=== PATIENT | female | born 1930 | race Hispanic/Latino ===

== ENCOUNTER 2016-09-22 16:58 | Inpatient (IN) | payer MEDICARE, OTHER ==
[2016-09-22 16:59] VITALS: BMI 27.8
--- NOTE | 2016-09-22 17:27 | ED PDOC ---
Arrival/HPI - General Historian: Patient, Family - History of Present Illness Time/Duration: 4-6 hours Symptom Onset: Gradual Symptom Course: Unchanged Quality: Throbbing Severity Level: 5 Activities at Onset: Rest Context: Sitting <Eliel Casiano - Last Filed: 09/22/16 23:25> <Miranda Sanford - Last Filed: 09/22/16 23:38> - General Chief Complaint: Back Pain Time Seen by Provider: 09/22/16 17:00 - History of Present Illness Narrative History of Present Illness (Text): 09/22/16 17:39 This is a 85 yr old female with a past medical history of hypertension and CKD who presents to [facility] complaining of back pain for approximately 8 hours. The pain is located between the the scapula's and the patient denies of any radiation of the pain. The patient was in bed this morning watching T.V. when she began to have back pain. Per the patient, she took two Tylenol with some improvement of symptoms but the pain began to return to the same intensity. The patient denies any fever, chills, chest pain , shortness of breath, nausea, vomiting, lightheadedness, dizziness, or any other complaints. (Eliel Casiano) Past Medical History - Provider Review Nursing Documentation Reviewed: Yes - Travel History Have you recently traveled outside [place] w/in the past 3 mons?: No - Infectious Disease Hx of Infectious Diseases: None - Tetanus Immunization Tetanus Immunization: Unknown - Reproductive Menopause: Yes - Cardiac Hx Cardiac Disorders: Yes Hx Hypertension: Yes - Pulmonary Hx Asthma: Yes Hx Chronic Obstructive Pulmonary Disease (COPD): Yes Hx Pneumonia: Yes - Neurological Hx Neurological Disorder: No - HEENT Hx HEENT Disorder: Yes Hx Cataracts: Yes (sx) - Renal Hx Renal Disorder: Yes - Endocrine/Metabolic Hx Endocrine Disorders: Yes Hx Hypothyroidism: Yes - Hematological/Oncological Hx Blood Disorders: No - Integumentary Hx Dermatological Disorder: No - Musculoskeletal/Rheumatological Hx Arthritis: Yes Hx Falls: No - Gastrointestinal Hx Gastrointestinal Disorders: No - Genitourinary/Gynecological Hx Incontinence: Yes - Psychiatric Hx Psychophysiologic Disorder: No Hx Substance Use: No - Surgical History Hx Mastectomy: Yes (bilateral) Other/Comment: c sections x2 - Suicidal Assessment Feels Threatened In Home Enviroment: No <Eliel Casiano - Last Filed: 09/22/16 23:25> Family/Social History Family/Social History: No Known Family HX Smoking Status: Never Smoked Hx Alcohol Use: No Hx Substance Use: No <Johanne Casianon - Last Filed: 09/22/16 23:25> Allergies/Home Meds <Johanne Casianon - Last Filed: 09/22/16 23:25> <Miranda Sanford - Last Filed: 09/22/16 23:38> Allergies/Adverse Reactions: Allergies No Known Allergies Allergy (Verified 05/03/13 16:21) Home Medications: Home Meds Medication Instructions Recorded Confirmed Levothyroxine Sodium [Levoxyl] 50 mcg PO DAILY 09/22/16 09/22/16 Nebivolol [Bystolic] 5 mg PO DAILY 09/22/16 09/22/16 Sodium Bicarbonate Tab 650 mg PO TID 09/22/16 09/22/16 amLODIPine [Norvasc] 10 mg PO DAILY 09/22/16 09/22/16 Review of Systems - Patients Enrolled in [employer] [X]: A conversation was conducted with the primary medical doctor. - Physician Review All systems were reviewed & negative as marked: Yes - Review of Systems Constitutional: Normal. absent: Weight Change, Fevers, Night Sweats Eyes: Normal. absent: Vision Changes, Eye Pain ENT: Normal. absent: Sore Throat, Rhinorrhea, Sinus Congestion Respiratory: Normal. absent: SOB, Sputum Cardiovascular: Normal. absent: Chest Pain, Palpitations Gastrointestinal: Normal. absent: Constipation, Diarrhea, Nausea, Vomiting Genitourinary Female: Normal. absent: Frequency, Hematuria Musculoskeletal: Back Pain (located between both scapula) Skin: absent: Skin Lesions, Laceration, Abscess Neurological: Normal. absent: Headache, Dizziness Endocrine: Normal. absent: Polyuria, Polydipsia Hemo/Lymphatic: Normal. absent: Easy Bleeding, Easy Bruising <Johanne Casianon - Last Filed: 09/22/16 23:25> Physical Exam Vital Signs Reviewed: Yes Temperature: Afebrile Blood Pressure: Hypertensive Pulse: Regular Respiratory Rate: Normal Appearance: Positive for: Well-Appearing, Non-Toxic, Comfortable Pain Distress: None Mental Status: Positive for: Alert and Oriented X 3 - Systems Exam Head: Present: Atraumatic, Normocephalic Pupils: Present: PERRL. No: Sluggish Extroacular Muscles: Present: EOMI. No: Gaze Palsy Conjunctiva: Present: Normal. No: Injected Mouth: Present: Moist Mucous Membranes. No: Drooling, Trismus Neck: Present: Normal Range of Motion. No: JVD, Lymphadenopathy Respiratory/Chest: Present: Good Air Exchange, Wheezes (slight expiratory wheeze noted but patient Sat's are well at 99% RA). No: Clear to Auscultation, Respiratory Distress, Accessory Muscle Use Cardiovascular: Present: Regular Rate and Rhythm, Normal S1, S2. No: Murmurs, Tachycardic, Bradycardic Abdomen: Present: Normal Bowel Sounds. No: Tenderness, Distention, Peritoneal Signs Back: Present: Normal Inspection, Midline Tenderness (located between both scapula midline). No: CVA Tenderness Upper Extremity: Present: Normal Inspection. No: Cyanosis, Edema, Tenderness Lower Extremity: Present: Normal Inspection. No: Edema, CALF TENDERNESS Neurological: Present: CN II-XII Intact, Speech Normal Skin: Present: Dry, Normal Color. No: Warm, Rashes, Cold Psychiatric: Present: Alert, Oriented x 3, Normal Insight, Normal Concentration <Eliel Casiano - Last Filed: 09/22/16 23:25> Medical Decision Making - RAD Interpretation Physician Interventional Cardiologist: Radiologist <Eliel Casiano - Last Filed: 09/22/16 23:25> <Miranda Sanford - Last Filed: 09/22/16 23:38> ED Course and Treatment: 09/22/16 17:51 Patient was brought into [facility] complaining of back pain located between the scapula. Labs were ordered including: ekg, cbc w/diff, cmp , mri/mra of chest and abdomen. Patient will be re-evaluated once lab work returns. Patient has a history of CKD so instead of a CT Angiogram we choose MRI/MRA to r /o aortic dissection. Spoke with Dr. Pride the Radiologist who recommended to do a f/u CT w/o contrast of the chest, abdomen and pelvis to r/o a possible stomach volvulus that was difficult to appreciate on MRI study. Patient will be admitted for further workup. (Eliel Casiano) EXAM: MRI Abdomen Without Intravenous Contrast 09/22/2016 11:07 PM Dictated and Authenticated by: Cyn Pride MD IMPRESSION: Limited evaluation of the abdomen and upper pelvis demonstrates findings worrisome for a paraesophageal hernia, with possible gastric volvulus, for which noncontrast head CT examination of this area suggested. No abnormal signal intensity along the course of the abdominal aorta to suggest dissection. THIS REPORT CONTAINS FINDINGS THAT MAY BE CRITICAL TO PATIENT CARE. The findings were verbally communicated via telephone conference with Miranda Sanford at 11:07 PM EDT on 09/22/2016. The findings were acknowledged and understood. 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 09/22/16 23:20 In agreement with resident note, which includes further HPI details. Patient was seen and evaluated with resident, came up with plan and treatment together. 85 year old female presents to the emergency department complaining of back pain for the past 8 hours. 09/22/16 23:33 Patient with the back pain - BP elevated and unexplained atraumatic back pain - concerning for possible aortic dissection. Given renal insufficiency, unable to obtain CTA; MRI ordered; results as noted. Large paraesophageal hernia may affect the back pain - additionally needs additional imaging by CT c/a/p to r/o stomach volvulus. Imaged were suboptimal to r/o dissection, however other than 2 images, the rest showed no suggestion of dissection. Urine shows UTI; given abx. Patient will need further observation for evaluation and treatment; CT results will be followed up by residents working under Dr. Monzon, with whom the case was discussed for placement on his service. (Miranda Sanford) - Lab Interpretations Lab Results: 09/22/16 18:04 09/22/16 18:04 Lab Results 09/22/16 18:04: D-Dimer, Quantitative 1.00 H 09/22/16 18:04: Urine Color Light yellow, Urine Appearance Sl cloudy, Urine pH 6.5, Ur Specific [place] 1.020, Urine Protein 100 H, Urine Glucose (UA) Negative , Urine Ketones Negative, Urine Blood Small H, Urine Nitrate Negative, Urine Bilirubin Negative, Urine Urobilinogen 0.2, Ur Leukocyte Esterase Moderate H, Urine RBC 2 - 5, Urine WBC 25 - 30, Ur Epithelial Cells 4 - 5, Urine Bacteria Rare 09/22/16 18:04: Sodium 139, Potassium 4.9, Chloride 108 H, Carbon Dioxide 22, Anion Gap 14, BUN 32 H, Creatinine 2.2 H, Est GFR ( Amer) 26, Est GFR ( Non-Af Amer) 21, Random Glucose 88, Calcium 9.2, Total Bilirubin 0.5, AST 25, ALT 18, Alkaline Phosphatase 76, Lactate Dehydrogenase 396, Total Creatine Kinase 62, Troponin I < 0.01 D, Total Protein 6.5, Albumin 3.7, Globulin 2.8, Albumin/Globulin Ratio 1.3, Lipase 157 09/22/16 18:04: WBC 8.8, RBC 3.75, Hgb 12.3, Hct 37.2, MCV 99.2, MCH 32.8, MCHC 33.1, RDW 12.9, Plt Count 175, MPV 11.5 H, Gran % 70.7 H, Lymph % (Auto) 18.3 L , Gregg % (Auto) 8.1 H, Eos % (Auto) 2.6, Baso % (Auto) 0.3, Gran # 6.21, Lymph # 1.6, Gregg # 0.7 H, Eos # 0.2, Baso # 0.03 - RAD Interpretation Radiology Orders: 09/22/16 17:36 CHEST TWO VIEWS (PA/LAT) [RAD] Stat 09/22/16 17:37 ABDOMEN W/O CONTRAST [MRI] Stat CHEST WITHOUT CONTRAST [MRI] Stat - Medication Orders Current Medication Orders: Discontinued Medications Diazepam (Valium) 5 mg PO ONCE ONE Stop: 09/22/16 17:36 Last Admin: 09/22/16 17:55 Dose: 5 mg Ceftriaxone Sodium (Rocephin 1 Gram Ivpb) 1 gm in 100 mls @ 200 mls/hr IV ONCE STA PRN Reason: Protocol Stop: 09/22/16 21:51 Last Admin: 09/22/16 22:06 Dose: 200 mls/hr Lorazepam (Ativan) 0.5 mg IVP ONCE STA PRN Reason: Protocol Stop: 09/22/16 19:31 Last Admin: 09/22/16 19:38 Dose: 0.5 mg Tramadol HCl (Ultram) 50 mg PO STAT STA Stop: 09/22/16 17:37 Last Admin: 09/22/16 17:55 Dose: 50 mg - PA / [employer]OL[employer] PROFESSIONAL / Resident Statement IFEANYI has reviewed & agrees with the documentation as recorded. / has examined the patient and agrees with the treatment plan. <Eliel Casiano - Last Filed: 09/22/16 23:25> - PA / [employer]OL[employer] PROFESSIONAL / Resident Statement IFEANYI has reviewed & agrees with the documentation as recorded. / has examined the patient and agrees with the treatment plan. - Scribe Statement The provider has reviewed the documentation as recorded by the Scribe <Miranda Sanford - Last Filed: 09/22/16 23:38> - Scribe Statement Ezio Oleary All medical record entries made by the Scribe were at my direction and personally dictated by me. I have reviewed the chart and agree that the record accurately reflects my personal performance of the history, physical exam, medical decision making, and the department course for this patient. I have also personally directed, reviewed, and agree with the discharge instructions and disposition. (Miranda Sanford) Disposition/Present on Arrival - Present on Arrival Any Indicators Present on Arrival: No History of DVT/PE: No History of Uncontrolled Diabetes: No Urinary Catheter: No History of Decub. Ulcer: No History Surgical Site Infection Following: None - Disposition Have Diagnosis and Disposition been Completed?: Yes Disposition Time: 23:00 Patient Plan: Observation <Eliel Casiano - Last Filed: 09/22/16 23:25> <Miranda Sanford - Last Filed: 09/22/16 23:38> - Disposition Diagnosis: UTI (urinary tract infection), Back pain Disposition: HOSPITALIZED Patient Problems: Current Active Problems Problem Status Onset Back pain Acute UTI (urinary tract infection) Acute Condition: FAIR
[2016-09-22 18:09] LABS: PH,URINE 6.5 (4.7-8.0); URINE BILIRUBIN NEGATIVE (NEGATIVE); URINE BLOOD SMALL (NEGATIVE); URINE GLUCOSE (UA) NEGATIVE (NEGATIVE); URINE LEUKOCYTE ESTERASE MODERATE Leu/uL (NEGATIVE); URINE NITRATE NEGATIVE (NEGATIVE); URINE PROTEIN 100 mg/dL (<30 mg/dL); URINE UROBILINOGEN 0.2 E.U./dL (<1 E.U./dL)
[2016-09-22 18:11] LABS: BASO # 0.03 K/mm3 (0.0-2.0); BASO % 0.3 % (0.0-3.0); EOS # 0.2 (0.0-0.7); EOS % 2.6 % (1.5-5.0); GRAN # 6.21 (1.4-6.5); GRAN % 70.7 % (50.0-68.0); HEMOGLOBIN 12.3 g/dL (12.0-16.0); LYMPH # 1.6 (1.2-3.4); LYMPH % 18.3 % (22.0-35.0); MEAN CELL VOLUME 99.2 fl (80.0-105.0); MEAN CORPUSCULAR HEMOGLOBIN 32.8 pg (25.0-35.0); MEAN CORPUSCULAR HGB CONC 33.1 g/dl (31.0-37.0); MEAN PLATELET VOLUME 11.5 fl (7.0-11.0); MONO # 0.7 (0.1-0.6); MONO % 8.1 % (1.0-6.0); PLATELET COUNT 175 10^3/uL (120.0-450.0); RBC 3.75 10^6/uL (3.5-6.1); RED CELL DISTRIBUTION WIDTH 12.9 % (11.5-14.5); WHITE BLOOD COUNT 8.8 10^3/ul (4.5-11.0)
[2016-09-22 18:16] LABS: URINE COLOR LIGHT YELLOW (YELLOW)
[2016-09-22 18:17] LABS: URINE APPEARANCE SL CLOUDY (CLEAR)
[2016-09-22 18:22] LABS: ALB/GLOB RATIO 1.3 (1.1-1.8); ALBUMIN 3.7 g/dL (3.0-4.8); ALT/SGPT 18 U/L (7-56); AST/SGOT 25 U/L (15-39); BLOOD UREA NITROGEN 32 mg/dL (7-21); CALCIUM 9.2 mg/dL (8.4-10.5); GFR AFRICAN-AMERICAN 26; GFR NON-AFRICAN AMERICAN 21; LIPASE 157 U/L (23-300); URINE WBC 25 - 30 /hpf (0-6)
[2016-09-22 18:23] LABS: URINE BACTERIA RARE (NEG)
[2016-09-22 18:34] LABS: TROPONIN I < 0.01 ng/mL
[2016-09-22] MEDS ORDERED: cefTRIAXone 1 gm 1 GM/100 ML BAG IV STA (21:22)
--- NOTE | 2016-09-22 21:32 | CARD ---
APPROVED REPORT EKG Measurement Heart [id number] <Conclusion> Normal sinus rhythm Left axis deviation Moderate voltage criteria for LVH, may be normal variant Cannot rule out Septal infarct, age undetermined T wave abnormality, consider lateral ischemia Abnormal ECG
--- NOTE | 2016-09-23 00:55 | CP.PCM.HP ---
History of Present Illness - History of Present Illness History of Present Illness: 85 yo female with a history of hypertension, asthma, hypothyroidism, and CKD who present with sudden onset, sharp, stabbing back pain of 2 hour duration, located centrally, that started at 7:30 pm when she was stretching her arms out above her head. She denies any recent trauma to the back, worsening of the pain with bending over, standing, sitting, eating, fasting. She states that taking 2 Tylenol's did help with the pain. She denies any sudden weakness, numbness, or loss of functionally, or similar symptoms in the past. PMHx: Hypertension, COPD, asthma, hypothyroidism, and CKD. PSH: Bilateral Mastectomy, 2- C sections Social: Denies smoking, denies alcohol, cannot provide more than that Present on Admission - Present on Admission Any Indicators Present on Admission: No Urinary Catheter: No Review of Systems - Constitutional Constitutional: As Per HPI - EENT Eyes: As Per HPI Nose/Mouth/Throat: As Per HPI - Cardiovascular Cardiovascular: As Per HPI. absent: Chest Pain, Chest Pain at Rest, Claudication - Respiratory Respiratory: As Per HPI. absent: Snoring, Stridor, Pain on Inspiration - Gastrointestinal Gastrointestinal: As Per HPI. absent: Fecal Incontinence, Hematochezia, Odynophagia - Genitourinary Genitourinary: absent: Pyuria, Nocturia, Voiding Freq/Small Amts - Reproductive: Female Reproductive:Female: absent: Heavy Menses, Light Menses, Spotting Between Cycles - Menstruation Menstruation: absent: Menses Variable, Cycle > 4 Weeks Between, Spotting Between Cycles - Musculoskeletal Musculoskeletal: absent: Atrophy, Muscle Cramps, Tingling - Integumentary Integumentary: absent: Photosensitivity, Pruritus - Neurological Neurological: absent: Burning Sensations, Focal Weakness, Syncope - Psychiatric Psychiatric: absent: Depression, Difficulty Concentrating, Mood Swings - Endocrine Endocrine: absent: Cold Intolorance, Excessive Sweating, Increase in Ring/Shoe/ Hat Size - Hematologic/Lymphatic Hematologic: absent: Easy Bleeding, Easy Bruising Past Patient History - Infectious Disease Hx of Infectious Diseases: None - Tetanus Immunizations Tetanus Immunization: Unknown - Past Social History Smoking Status: Never Smoked - CARDIAC Hx Cardiac Disorders: Yes Hx Hypertension: Yes - PULMONARY Hx Asthma: Yes Hx Chronic Obstructive Pulmonary Disease (COPD): Yes Hx Pneumonia: Yes - NEUROLOGICAL Hx Neurological Disorder: No - HEENT Hx HEENT Problems: Yes Hx Cataracts: Yes (sx) - RENAL Hx Chronic Kidney Disease: Yes - ENDOCRINE/METABOLIC Hx Endocrine Disorders: Yes Hx Hypothyroidism: Yes - HEMATOLOGICAL/ONCOLOGICAL Hx Blood Disorders: No - INTEGUMENTARY Hx Dermatological Problems: No - MUSCULOSKELETAL/RHEUMATOLOGICAL Hx Arthritis: Yes Hx Falls: No - GASTROINTESTINAL Hx Gastrointestinal Disorders: No - GENITOURINARY/GYNECOLOGICAL Hx Incontinence: Yes - PSYCHIATRIC Hx Psychophysiologic Disorder: No Hx Substance Use: No - SURGICAL HISTORY Hx Mastectomy: Yes (bilateral) Other/Comment: c sections x2 Meds Allergies/Adverse Reactions: Allergies Allergy/AdvReac Type Severity Reaction Status Date / Time No Known Allergies Allergy Verified 05/03/13 16:21 Physical Exam - Constitutional Appears: Non-toxic, No Acute Distress - Head Exam Head Exam: ATRAUMATIC, NORMOCEPHALIC - Eye Exam Eye Exam: EOMI, Normal appearance, PERRL - ENT Exam ENT Exam: Mucous Membranes Moist, Normal Oropharynx - Neck Exam Neck exam: Positive for: Normal Inspection. Negative for: Lymphadenopathy, Thyromegaly - Respiratory Exam Respiratory Exam: Clear to Auscultation Bilateral, NORMAL BREATHING PATTERN - Cardiovascular Exam Cardiovascular Exam: RRR, +S1, +S2 - GI/Abdominal Exam GI & Abdominal Exam: Normal Bowel Sounds. absent: Rebound Additional comments: protuberant, no HSM, no rebound or tenderness, no aortic, renal, or illiac bruits auscultated - Rectal Exam Rectal Exam: Deferred - Extremities Exam Extremities exam: Positive for: normal inspection, pedal pulses present - Back Exam Additional comments: no tenderness to vertebral body palpation in thoracic and lumbar region. No CVA tenderness, no paraspinal tenderness - Neurological Exam Neurological exam: Alert, CN II-XII Intact, Oriented x3 - Psychiatric Exam Psychiatric exam: Normal Affect, Normal Mood - Skin Skin Exam: Dry, Intact, Normal Color, Warm Results - Vital Signs Recent Vital Signs: Last Vital Signs Temp 97.9 F 09/22/16 17:05 Pulse 70 09/22/16 20:07 Resp 20 09/22/16 20:07 BP 141/91 H 09/22/16 20:07 Pulse Ox 98 09/22/16 20:07 - Labs Result Diagrams: 09/22/16 18:04 09/22/16 18:04 - EKG Data EKG Interpreted by: Myself EKG shows normal: Sinus rhythm Rate: Normal - EKG Data When Compared to Previous EKG: No Significant Change Assessment & Plan - Assessment and Plan (Free Text) Assessment: 85 y/o female presenting with back pain of 1 day while watching present to ED with hypertension and CKD. Plan: 1) Back pain in a patient with aortic calcifications and non-traumatic back pain MRI of abdomen and pelvis performed to r/o gastric volvulus, official read pending CT of A/P to r/o aortic dissection, official read pending Patient did not complain of pain during my encounter, so held off on any analgesia 2) CKD Cr 2.2, baseline Avoid nephrotoxins Monitor with daily CMP 3) Hypertension: C/W home medications Case was discussed with Dr. Monzon - Date & Time Date: 09/22/16 Time: 23:00
--- NOTE | 2016-09-23 02:04 | CT ---
EXAM: CT Abdomen and Pelvis Without Intravenous Contrast CLINICAL HISTORY: The patient age is 85 years old and is female; Pain; Abdominal pain; Acute; Chest pain; Type not specified; Additional info: R/O stomach volvulus [facility] and [facility], pelvis w/o cont TECHNIQUE: Axial computed tomography images of the abdomen and pelvis without intravenous contrast. All CT scans at this facility use one or more dose reduction techniques, viz.: automated exposure control; ma/kV adjustment per patient size (including targeted exams where dose is matched to indication; i.e. head); or iterative reconstruction technique. COMPARISON: No relevant prior studies available. FINDINGS: ABDOMEN: Liver: Unremarkable. No mass. Gallbladder and bile ducts: The gallbladder is well distended, without discrete gallstones. Pancreas: Normal contour. No ductal dilation. Spleen: Within the spleen, there is a small hypodense lesion measuring 0.7 x 0.5 cm. This is incompletely evaluated without intravenous contrast. Adrenals: There is thickening of the bilateral adrenal glands, which is nonspecific. Kidneys and ureters: There is a normal contour of the bilateral kidneys, consistent with parenchymal scarring. At the midpole the left kidney, there is a 1.4 x 1.1 cm hypodense probable cyst. No hydronephrosis. Stomach and bowel: Colonic diverticula are identified, without acute inflammatory stranding of the adjacent mesentery. Evaluation of the bowel is limited by the absence of oral contrast. Moderate fecal material is visualized within the colon. See chest CT report for discussion of the hiatal hernia. Appendix: No findings to suggest acute appendicitis. PELVIS: Bladder: There is nonspecific wall thickening of the bladder. No stones. Reproductive: Unremarkable as visualized. ABDOMEN and PELVIS: Intraperitoneal space: No free air. Bones/joints: Hypertrophic degenerative changes are noted within the spine. Soft tissues: There is eventration of the ventral abdominal wall. Vasculature: Extensive atherosclerotic changes are visualized. No abdominal aortic aneurysm. Lymph nodes: There is no significant retroperitoneal or intrapelvic lymphadenopathy. IMPRESSION: 1. There is nonspecific wall thickening of the bladder. 2. Diverticulosis. 3. The gallbladder is well distended, without discrete gallstones. 4. Within the spleen, there is a small hypodense lesion measuring 0.7 x 0.5 cm. This is incompletely evaluated without intravenous contrast. 5. Additional CT findings described above. EXAM: CT Chest Without Intravenous Contrast EXAM DATE/TIME: 09/22/2016 11:09 PM CLINICAL HISTORY: The patient age is 85 years old and is female; Pain; Abdominal pain; Acute; Chest pain; Type not specified; Additional info: R/O stomach volvulus [facility], [facility] w/o cont TECHNIQUE: Axial computed tomography images of the chest without intravenous contrast. All CT scans at this facility use one or more dose reduction techniques, viz.: automated exposure control; ma/kV adjustment per patient size (including targeted exams where dose is matched to indication; i.e. head); or iterative reconstruction technique. COMPARISON: MR - ABDOMEN W/O CONTRAST 09/22/2016 7:31:40 PM FINDINGS: Lungs: Mild atelectatic changes are visualized within the lingula, the right middle lobe, and the dependent portions of both lower lobes. Within the left upper lobe on series 2 image 47, there is a 3 mm nodule. No lung mass. Pleural space: No pneumothorax. No significant effusion. Heart: There is coronary artery calcification. Bones/joints: Hypertrophic degenerative changes are noted within the spine. Hypertrophic degenerative changes are noted within the spine. Soft tissues: There is a calcific or ossific density identified within the subcutaneous tissues of the upper back. Vasculature: Extensive atherosclerotic changes are visualized. Lymph nodes: Small mediastinal lymph nodes are identified, without significant lymphadenopathy. Stomach and bowel: There is a large hiatal hernia. There is no abnormal orientation of the stomach to suggest volvulus. IMPRESSION: 1. There is a large hiatal hernia. There is no abnormal orientation of the stomach to suggest volvulus. If further evaluation is clinically indicated, an upper GI exam is recommended. 2. Mild atelectatic changes are visualized within the lingula, the right middle lobe, and the dependent portions of both lower lobes. 3. Within the left upper lobe on series 2 image 47, there is a 3 mm nodule.If this patient is at low risk for a primary malignancy, then no follow-up is required. If this patient is at high risk for a primary maligancy, then a follow-up noncontrast chest CT is recommended at 12 months. If unchanged at that time, then no follow-up is required. Fleischner Society Recommendations. Incidental Pulmonary Nodule Follow-up. Radiology, 2005 Nov;237(2):395-400. 4. Incidental/non-acute findings are described above.
--- NOTE | 2016-09-23 07:22 | RAD ---
HISTORY: upper back pain COMPARISON: Portable chest 05/03/2013 TECHNIQUE: Chest PA and lateral FINDINGS: LUNGS: No active pulmonary disease. No consolidation PLEURA: No significant pleural effusion identified. No pneumothorax apparent. CARDIOVASCULAR: Borderline mild cardiomegaly. Atherosclerotic vascular calcifications aortic knob. Mitral annular calcification the tortuosity of the thoracic aorta and unfolding of it -not significantly changed OSSEOUS STRUCTURES: Bilateral shoulder arthrosis and generalized osteopenia. No gross compression fracture thoracic spine on lateral view VISUALIZED UPPER ABDOMEN: Normal. OTHER FINDINGS: None. IMPRESSION: No active disease.
[2016-09-23] MEDS ORDERED: Albuterol-Ipratrop 3 mg / 0.5 (3 ml) UD IH PRN (09:33)
--- NOTE | 2016-09-23 10:08 | MRI ---
PROCEDURE: MRI Abdomen without contrast HISTORY: Hypertension, back pain. Rule out dissection COMPARISON: None available. TECHNIQUE: Multisequence, multiplanar MR images of the abdomen without gadolinium contrast enhancement. FINDINGS: LIVER: Unremarkable. GALLBLADDER: Unremarkable. SPLEEN: Unremarkable. ADRENALS: Unremarkable. KIDNEYS: Unremarkable. PANCREAS: Unremarkable. AORTA: There is no evidence of aortic dissection or aneurysm ASCITES: None. PERITONEUM: Unremarkable. LYMPH NODES: Unremarkable. OTHER FINDINGS: The report concurs with the preliminary [facility] report IMPRESSION: No evidence of aortic dissection or aneurysm
[2016-09-23] MEDS: Levothyroxine 50 MCG TAB PO SCH (10:12)
[2016-09-23] MEDS: cefTRIAXone 1 gm 1 GM/100 ML BAG IVPB SCH (10:12)
[2016-09-23] MEDS: Non Formulary Medication (Nebivolol [Bystolic] 5 MG) PO SCH (10:13)
--- NOTE | 2016-09-23 10:13 | MRI ---
PROCEDURE: MRI of the chest without contrast HISTORY: Hypertension, back pain - r/o aortic dissection COMPARISON: TECHNIQUE: MRI of the chest was performed without contrast in multiple planes using multiple pulse sequences FINDINGS: There is dilatation of the ascending aorta which measures 39 mm. The descending aorta at the same level measures 23 mm. There is no evidence of aortic dissection. There is no pleural effusion or consolidation. There is a moderate size hiatal hernia. IMPRESSION: No evidence of dissection
[2016-09-23] MEDS: MethylPREDNISolone 40 mg Vial IVP SCH ×2 (10:50→22:07)
[2016-09-23] MEDS ORDERED: Albuterol 0.083% Inhal Sol (2.5 mg/3 mL) UD IH PRN ×2 (10:55→10:57)
--- NOTE | 2016-09-23 11:19 | RAD ---
PROCEDURE: CHEST RADIOGRAPH, 1 VIEW HISTORY: SOB COMPARISON: CT chest 2016 and chest x-ray 09/22/2016 FINDINGS: LUNGS: Current study is more rotated towards the right further accentuating the all Radi tortuous the prominent unfolded thoracic aorta. No CT reported aneurysm. There is vague increased opacity at the right lung base - however the the rotations also could relate to a right cardiophrenic fat pad tricky given the unremarkable appearance on the 09/22/2016 recent chest x-ray. The CT did describe mild atelectatic changes at both lung bases. There is some calcific like density projecting over the left upper lung zone -on the CT exam posterior subcutaneous coarse calcifications noted given the marked rotation this could be projected obliquely here. No similar nodule is similar large calcification left upper lung zone on the recent 09/22/2016 study is atelectasis suggested this is within the left lung PLEURA: No pneumothorax or pleural fluid seen. CARDIOVASCULAR: Cardiomegaly and tortuous unfolded thoracic aorta aortic arch calcification OSSEOUS STRUCTURES: No significant abnormalities. VISUALIZED UPPER ABDOMEN: On this exam as a stronger suggestion of a prominent hiatal hernia OTHER FINDINGS: Surgical clips likely relating to prior right breast and/or right axillary surgical intervention. IMPRESSION: Rotated exam. No interval pathology suggested. Prior large hiatal hernia is as before Tortuous unfolded thoracic aorta with atherosclerotic vascular calcifications including mitral annular calcification. No thoracic aortic aneurysm appreciated were reported on the recent CT
[2016-09-23] MEDS: Albuterol-Ipratrop 3 mg / 0.5 (3 ml) UD IH SCH ×2 (13:35→22:15)
--- NOTE | 2016-09-23 15:25 | NM ---
COMPARISON: 09/23/2016 chest x-ray TECHNIQUE: 30.8 mCi technetium 99-m DTPA aerosol. 3.4 mCI technetium 99-m MAA administered intravenously. FINDINGS: VENTILATION COMPONENT: Ventilation defect left lower lobe anteriorly PERFUSION COMPONENT: There is a perfusion defect in the anterior left lower lobe with a matched ventilation defect. There is some atelectasis in this region on the chest x-ray. IMPRESSION: Lowprobability ventilation perfusion scan for pulmonary embolism.
--- NOTE | 2016-09-23 18:07 | CP.PCM.CON ---
History of Present Illness - History of Present Illness History of Present Illness: PGY-2 Nephrology consult note for Dr. Hernandez 85 yo female with PMH of HTN, asthma, hypothyroidism, and CKD who present with sudden onset, sharp, stabbing back pain. Patient states pain was located centrally of her lower back. Pain started while watching TV. She denies any recent trauma to the back or previous episodes of similar pain. Pain does not radiated. Patient was found to have elevated BP in ED. Patient starts she has not taken her blood pressure medications for about 1 week. She reports uncontrolled urination wears diapers, denies dysuria, hematuria. She denies fever, chill, chest pain, n/v, abd pain, weakness, numbness. PMH: Hypertension, COPD, asthma, hypothyroidism, and CKD. PSH: Bilateral Mastectomy, C sections x 2 Social hx: Denies smoking, denies alcohol, cannot provide more than that Review of Systems - Constitutional Constitutional: absent: Chills, Fever, Headache, Night Sweats - EENT Eyes: absent: Change in Vision Nose/Mouth/Throat: absent: Nasal Congestion, Nasal Discharge - Cardiovascular Cardiovascular: absent: Chest Pain, Diaphoresis, Dyspnea, Leg Edema - Respiratory Respiratory: absent: Cough, Dyspnea, Hemoptysis - Gastrointestinal Gastrointestinal: absent: Abdominal Pain, Constipation, Diarrhea, Nausea, Vomiting - Genitourinary Genitourinary: absent: Change in Urinary Stream, Dysuria, Flank Pain, Hematuria - Musculoskeletal Musculoskeletal: Back Pain. absent: Arthralgias, Muscle Weakness, Myalgias, Neck Pain, Numbness, Stiffness - Integumentary Integumentary: absent: Pruritus, Rash, Sores, Swelling - Neurological Neurological: absent: Dizziness, Numbness, Focal Weakness, Headaches - Hematologic/Lymphatic Hematologic: absent: Easy Bleeding, Easy Bruising Past Patient History - Infectious Disease Hx of Infectious Diseases: None - Tetanus Immunizations Tetanus Immunization: Unknown - Past Social History Smoking Status: Never Smoked - CARDIAC Hx Cardiac Disorders: Yes Hx Hypertension: Yes - PULMONARY Hx Asthma: Yes Hx Chronic Obstructive Pulmonary Disease (COPD): Yes Hx Pneumonia: Yes - NEUROLOGICAL Hx Neurological Disorder: No - HEENT Hx HEENT Problems: Yes Hx Cataracts: Yes (sx) - RENAL Hx Chronic Kidney Disease: Yes - ENDOCRINE/METABOLIC Hx Endocrine Disorders: Yes Hx Hypothyroidism: Yes - HEMATOLOGICAL/ONCOLOGICAL Hx Blood Disorders: No - INTEGUMENTARY Hx Dermatological Problems: No - MUSCULOSKELETAL/RHEUMATOLOGICAL Hx Arthritis: Yes Hx Falls: No - GASTROINTESTINAL Hx Gastrointestinal Disorders: No - GENITOURINARY/GYNECOLOGICAL Hx Incontinence: Yes - PSYCHIATRIC Hx Psychophysiologic Disorder: No Hx Substance Use: No - SURGICAL HISTORY Hx Mastectomy: Yes (bilateral) Other/Comment: c sections x2 Meds Allergies/Adverse Reactions: Allergies Allergy/AdvReac Type Severity Reaction Status Date / Time No Known Allergies Allergy Verified 05/03/13 16:21 - Medications Medications: Current Medications Albuterol Sulfate (Albuterol 0.083% Inhal Urvashi (2.5 Mg/3 Ml) Ud) 2.5 mg IH [id number] PRN PRN Reason: Wheezing Albuterol/Ipratropium (Duoneb 3 Mg/0.5 Mg (3 Ml) Ud) 3 ml IH [id number] [facility] Last Admin: 09/23/16 13:35 Dose: Not Given Amlodipine Besylate (Norvasc) 10 mg PO DAILY [facility] Last Admin: 09/23/16 10:29 Dose: 10 mg Hydralazine HCl (Apresoline) 25 mg PO Q6 [facility] Ceftriaxone Sodium (Rocephin 1 Gram Ivpb) 1 gm in 100 mls @ 100 mls/hr IVPB DAILY [facility] PRN Reason: Protocol Last Admin: 09/23/16 10:12 Dose: 100 mls/hr Levothyroxine Sodium (Synthroid) 50 mcg PO ACB [facility] Last Admin: 09/23/16 10:12 Dose: Not Given Methylprednisolone (Solu-Medrol) 40 mg IVP Q12 [facility] Last Admin: 09/23/16 10:50 Dose: 40 mg Non-Formulary Medication (Nebivolol [Bystolic]) 5 mg PO DAILY [facility] Last Admin: 09/23/16 10:13 Dose: Not Given Sodium Bicarbonate (Sodium Bicarbonate Tab) 650 mg PO TID [facility] Last Admin: 09/23/16 17:21 Dose: 650 mg Physical Exam - Constitutional Appears: Well, No Acute Distress - Head Exam Head Exam: ATRAUMATIC, NORMOCEPHALIC - Eye Exam Eye Exam: EOMI, Normal appearance - ENT Exam ENT Exam: Mucous Membranes Moist - Respiratory Exam Respiratory Exam: Clear to Auscultation Bilateral, NORMAL BREATHING PATTERN. absent: Decreased Breath Sounds, Rales, Rhonchi, Wheezes, Respiratory Distress, Stridor - Cardiovascular Exam Cardiovascular Exam: REGULAR RHYTHM, +S1, +S2. absent: Tachycardia, Systolic Murmur - GI/Abdominal Exam GI & Abdominal Exam: Normal Bowel Sounds, Soft. absent: Distended, Tenderness - Extremities Exam Extremities exam: Positive for: normal inspection. Negative for: pedal edema, tenderness - Back Exam Back exam: absent: CVA tenderness (L), CVA tenderness (R), muscle spasm, paraspinal tenderness, tenderness - Neurological Exam Neurological exam: Alert, Oriented x3 - Skin Skin Exam: Dry, Intact, Normal Color, Warm Results - Vital Signs Recent Vital Signs: Last Vital Signs Temp 97.5 F L 09/23/16 08:00 Pulse 69 09/23/16 10:16 Resp 24 09/23/16 08:00 BP 120/64 09/23/16 11:23 Pulse Ox 96 09/23/16 08:00 - Labs Result Diagrams: 09/22/16 18:04 09/22/16 18:04 Assessment & Plan - Assessment and Plan (Free Text) Assessment: 85 yo female with PMH of HTN, asthma, HTN, hypothyriodism, CKD presented with sudden, sharp back pain with hypertension and CKD. Plan: 1. 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 Back pain - denies trauma - MRI of abdomen and pelvis showed No evidence of aortic dissection or aneurysm - CT of A/P showed large hiatal hernia, Mild atelectatic changes, left upper lobe 3 mm nodule. 3. Hypertension: - not compliant with BP medications - cont with home medications, amlodipine and bystolic - will start hydralazine 25mg q6 PO, stop IV hydralazine, avoid dropping BP rapidly
--- NOTE | 2016-09-23 19:47 | US ---
HISTORY: Leg pain and swelling. Evaluate for DVT PHYSICIAN(S): Sachin Aldana MD. TECHNIQUE: Duplex sonography and color-flow Doppler with graded compression were used to evaluate the deep venous systems of both lower extremities. FINDINGS: The visualized deep venous systems of both lower extremities are sonographically normal and compressible. Normal wave forms and augmentation are seen. There is no sonographic evidence for deep venous thrombosis in the visualized segments of both lower extremities. IMPRESSION: No sonographic evidence for deep venous thrombosis in the visualized segments of both lower extremities.
[2016-09-23 21:20] VITALS: O2SAT 95
[2016-09-24] MEDS: Albuterol-Ipratrop 3 mg / 0.5 (3 ml) UD IH SCH ×2 (02:55→08:40)
[2016-09-24 06:17] LABS: HEMOGLOBIN 12.3 g/dL (12.0-16.0); MEAN CELL VOLUME 99.2 fl (80.0-105.0); MEAN CORPUSCULAR HEMOGLOBIN 33.1 pg (25.0-35.0); MEAN CORPUSCULAR HGB CONC 33.3 g/dl (31.0-37.0); MEAN PLATELET VOLUME 11.2 fl (7.0-11.0); PLATELET COUNT 176 10^3/uL (120.0-450.0); RBC 3.72 10^6/uL (3.5-6.1); RED CELL DISTRIBUTION WIDTH 13.2 % (11.5-14.5); WHITE BLOOD COUNT 12.1 10^3/ul (4.5-11.0)
[2016-09-24 06:24] LABS: ALB/GLOB RATIO 1.3 (1.1-1.8); ALBUMIN 3.6 g/dL (3.0-4.8); CALCIUM 9.5 mg/dL (8.4-10.5); MAGNESIUM 1.9 mg/dL (1.7-2.2)
[2016-09-24 06:35] LABS: TROPONIN I 0.03 ng/mL
[2016-09-24 06:37] VITALS: BP 124/71
[2016-09-24 06:58] LABS: BAND 5 % (0-2); LYMPHOCYTE 3 % (22.0-35.0); MONOCYTE 1 % (1.0-6.0); NEUTROPHIL 91 % (50.0-70.0); PLATELET ESTIMATE NORMAL (NORMAL)
[2016-09-24] MEDS: Levothyroxine 50 MCG TAB PO SCH (08:00)
--- NOTE | 2016-09-24 08:20 | CP.PCM.PN ---
Subjective - Date & Time of Evaluation Date of Evaluation: 09/24/16 Time of Evaluation: 08:18 - Subjective Subjective: PGY-2 Nephrology progress note for Dr. Hernandez Patient seen and examined at bedside. No acute distress. Patient has no complaints. Denies back pain, sob, fever, chills, abd pain, n/v. Patient is tolerating diet. Nurse reports no acute events overnight. Objective - Vital Signs/Intake and Output Vital Signs (last 24 hours): Temp Pulse Resp BP Pulse Ox 98.4 F 94 H 22 124/71 95 09/23/16 16:00 09/24/16 06:35 09/23/16 16:00 09/24/16 06:35 09/23/16 16:00 Intake and Output: 09/24/16 09/24/16 06:59 18:59 Intake Total 660 Balance 660 - Medications Medications: Current Medications Albuterol Sulfate (Albuterol 0.083% Inhal Urvashi (2.5 Mg/3 Ml) Ud) 2.5 mg IH [id number] PRN PRN Reason: Wheezing Albuterol/Ipratropium (Duoneb 3 Mg/0.5 Mg (3 Ml) Ud) [id number] [facility] Last Admin: 09/24/16 02:55 Dose: 3 ml Amlodipine Besylate (Norvasc) [address] [facility] Last Admin: 09/23/16 10:29 Dose: 10 mg Hydralazine HCl (Apresoline) 25 mg PO Q6 [facility] Last Admin: 09/24/16 06:35 Dose: 25 mg Ceftriaxone Sodium (Rocephin 1 Gram Ivpb) 1 gm in 100 mls @ 100 mls/hr IVPB DAILY [facility] PRN Reason: Protocol Last Admin: 09/23/16 10:12 Dose: 100 mls/hr Levothyroxine Sodium (Synthroid) 50 mcg PO ACB [facility] Last Admin: 09/23/16 10:12 Dose: Not Given Methylprednisolone (Solu-Medrol) 40 mg IVP Q12 [facility] Last Admin: 09/23/16 22:07 Dose: 40 mg Non-Formulary Medication (Nebivolol [Bystolic]) [address] [facility] Last Admin: 09/23/16 10:13 Dose: Not Given Sodium Bicarbonate (Sodium Bicarbonate Tab) [address] [facility] Last Admin: 09/23/16 17:21 Dose: 650 mg - Labs Labs: 09/24/16 05:20 09/24/16 05:20 - Constitutional Appears: Well, No Acute Distress - Head Exam Head Exam: ATRAUMATIC, NORMOCEPHALIC - Eye Exam Eye Exam: Normal appearance - ENT Exam ENT Exam: Mucous Membranes Moist - Respiratory Exam Respiratory Exam: Clear to Ausculation Bilateral, Rales, NORMAL BREATHING PATTERN. absent: Decreased Breath Sounds, Rhonchi, Wheezes, Respiratory Distress - Cardiovascular Exam Cardiovascular Exam: REGULAR RHYTHM, +S1, +S2. absent: Tachycardia, Murmur - GI/Abdominal Exam GI & Abdominal Exam: Soft, Normal Bowel Sounds. absent: Distended, Firm, Tenderness - Extremities Exam Extremities Exam: Normal Inspection. absent: Pedal Edema - Back Exam Back Exam: NORMAL INSPECTION. absent: CVA tenderness (L), CVA tenderness (R), tenderness - Neurological Exam Neurological Exam: Alert, Awake, Oriented x3 - Skin Skin Exam: Dry, Intact, Normal Color, Warm Assessment and Plan - Assessment and Plan (Free Text) Assessment: 85 yo female with PMH of HTN, asthma, HTN, hypothyriodism, CKD presented with sudden, sharp back pain with hypertension, COPD and CKD. Plan: 1. 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 Hypertension - not compliant with BP medications - cont with home medications, amlodipine and bystolic - cont hydralazine 25mg q6 PO PRN, avoid dropping BP rapidly 3. Back pain- improved - denies trauma - MRI of abdomen and pelvis showed No evidence of aortic dissection or aneurysm - CT of A/P showed large hiatal hernia, Mild atelectatic changes, left upper lobe 3 mm nodule.
[2016-09-24 08:56] VITALS: PULSE 92; RESP 18; TEMP 98.3
[2016-09-24] MEDS ORDERED: MethylPREDNISolone 40 mg Vial IVP SCH (09:11)
[2016-09-24] MEDS: cefTRIAXone 1 gm 1 GM/100 ML BAG IVPB SCH (09:59)
[2016-09-24] MEDS: Non Formulary Medication (Nebivolol [Bystolic] 5 MG) PO SCH (10:03)
--- NOTE | 2016-09-24 11:42 | CARD ---
APPROVED REPORT EKG Measurement Heart [id number] <Conclusion> Normal sinus rhythm Minimal voltage criteria for LVH, may be normal variant Nonspecific T wave abnormality Abnormal ECG
--- NOTE | 2016-09-24 11:56 | CARD ---
APPROVED REPORT EKG Measurement Heart [id number] <Conclusion> Normal sinus rhythm Left axis deviation Voltage criteria for left ventricular hypertrophy Abnormal ECG
--- NOTE | 2016-09-24 17:00 | CON ---
PULMONARY CONSULTATION LOCATION: Room 565, bed 1. HISTORY OF PRESENT ILLNESS: Stephanie is an 85-year-old woman who I have seen in the past, although as an outpatient, she lives in [place] and sees Dr. Monk for pulmonary management. She came to the hospital yesterday with complaints of back pain, which resolved immediately. She is feeling great on 5R and is asking when she can go home with nebulizer treatments that she is getting here (and which she has at home) she feels great. She offers no complaints at this time and feels well. 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 SOCIAL HISTORY: She is a nonsmoker. No alcohol use. No travel history. No occupational exposure. FAMILY HISTORY: COPD, coronary artery disease. REVIEW OF SYSTEMS: No additional problems are noted. She has symptoms related to the problems described above, mainly pulmonary in nature with intermittent cough, expectoration and wheezing. She has had pneumonia in the past as well. She has cataracts which has not been described previously and intermittent incontinence. HOME MEDICATIONS: Include bronchodilators, corticosteroids, and anticholinergics. She is not sure of the exact names of each of these medications, but I will review with the patient and if necessary her PMD. Please note that she was told in the past that she had nodule in her lung. PHYSICAL EXAMINATION: GENERAL: Stephanie is comfortable, in no acute respiratory distress. VITAL SIGNS: Her vital signs are stable with a heart rate of 70, she is afebrile, respiratory rate is 16, blood pressure 140/88, pulse ox 98% on room air. EYES: PERRLA. EOM is full. ENT: Negative. NECK: Supple. No JVD. No lymphadenopathy. No thyromegaly. No mass. No bruit or jugular venous distention. CHEST: Essentially clear to percussion and auscultation. At this time, there is a prolonged expiratory phase, but nothing that seems worse than that at this time. CARDIOVASCULAR: Regular rhythm. S1 and S2 without murmur, gallop, or rub. ABDOMEN: Soft. Bowel sounds are normoactive without mass, guarding, rebound. No organomegaly. EXTREMITIES: Revealed no clubbing, cyanosis or edema. There is no [place] sign. NEUROLOGIC: Awake, alert, oriented. Motor, sensory, and coordination is normal. Deep tendon reflex is okay. Babinski downgoing. Lymphadenopathy is not present. There are no palpable masses in the supraclavicular notch or anything abnormal in the cervical, inguinal, or axillary areas. SKIN: Warm and dry. No rash or excoriations. LABORATORY STUDY: Of late show, the last white count of 12.1, neutrophils 91%, bands 5%, lymphocytes 3%. Chemistries; sodium 141, potassium 4.8, chloride 109, carbon dioxide 19, BUN 40, creatinine 2.5, glucose 173. Chest x-rays and CAT scans are noted, there is a solitary pulmonary nodule. Second plain chest x-ray is of poor quality, cannot determine any abnormalities, but the previous films looked normal. I am not sure why this was done, but we have time to reevaluate this in the near future. EKG sinus rhythm, nonspecific ST-T wave changes. IMPRESSION: 1. Chronic obstructive pulmonary disease, stable on current medication. 2. Sticking chest pain, resolved. 3. Hypertension. 4. Azotemia. 5. Chronic kidney disease. 6. Mild obesity. PLAN: 1. The patient should be tapered off of her corticosteroid and be normalized as per her outpatient COPD medications. 2. She needs to be followed up with pulmonary nodules seen on CAT scan. These documents will be forwarded to her primary dust sampler for further evaluation. 3. Continue further respiratory and nonpulmonary care as per PMD. We will follow closely with you and decide on the need for further intervention based on clinical status. Thank you for the opportunity to see this arlen patient. Alex Peralta MD
--- NOTE | 2016-09-24 19:57 | CP.PCM.DIS ---
Provider - Provider Date of Admission: 09/23/16 16:12 Attending physician: Niko Burgess MD Primary care physician: Dang Armstrong MD Time Spent in preparation of Discharge (in minutes): 45 Hospital Course - Lab Results Lab Results: Most Recent Lab Values WBC 12.1 10^3/ul (4.5-11.0) H D 09/24/16 05:20 RBC 3.72 10^6/uL (3.5-6.1) 09/24/16 05:20 Hgb 12.3 g/dL (12.0-16.0) 09/24/16 05:20 Hct 36.9 % (36.0-48.0) 09/24/16 05:20 MCV 99.2 fl (80.0-105.0) 09/24/16 05:20 MCH 33.1 pg (25.0-35.0) 09/24/16 05:20 MCHC 33.3 g/dl (31.0-37.0) 09/24/16 05:20 RDW 13.2 % (11.5-14.5) 09/24/16 05:20 Plt Count 176 10^3/uL (120.0-450.0) 09/24/16 05:20 MPV 11.2 fl (7.0-11.0) H 09/24/16 05:20 Gran % [place] 09/24/16 05:20 Lymph % (Auto) [place] 09/24/16 05:20 [place] % (Auto) [place] 09/24/16 05:20 Eos % (Auto) [place] 09/24/16 05:20 Baso % (Auto) [place] 09/24/16 05:20 Gran # [place] 09/24/16 05:20 Lymph # [place] 09/24/16 05:20 [place] # [place] 09/24/16 05:20 Eos # [place] 09/24/16 05:20 Baso # [place] 09/24/16 05:20 Neutrophils % (Manual) 91 % (50.0-70.0) H 09/24/16 05:20 Band Neutrophils % 5 % (0-2) H 09/24/16 05:20 Lymphocytes % (Manual) 3 % (22.0-35.0) L 09/24/16 05:20 Monocytes % (Manual) 1 % (1.0-6.0) 09/24/16 05:20 Platelet Evaluation Normal (NORMAL) 09/24/16 05:20 D-Dimer, Quantitative 1.00 mg/L FEU (0-0.50) H 09/22/16 18:04 Sodium 141 mmol/L (132-148) 09/24/16 05:20 Potassium 4.8 mmol/L (3.6-5.0) 09/24/16 05:20 Chloride 109 mmol/L (98-107) H 09/24/16 05:20 Carbon Dioxide 19 mmol/L (21-33) L 09/24/16 05:20 Anion Gap 18 (10-20) 09/24/16 05:20 BUN 40 mg/dL (7-21) H 09/24/16 05:20 Creatinine 2.6 mg/dL (0.5-1.4) H 09/24/16 05:20 Est GFR ( Amer) 09/24/16 05:20 Est GFR (Non-Af Amer) 17 09/24/16 05:20 Random Glucose 173 mg/dL (70-110) H 09/24/16 05:20 Calcium 9.5 mg/dL (8.4-10.5) 09/24/16 05:20 Phosphorus 4.0 mg/dL (2.5-4.5) 09/24/16 05:20 Magnesium 1.9 mg/dL (1.7-2.2) 09/24/16 05:20 Total Bilirubin 0.5 mg/dL (0.2-1.3) 09/24/16 05:20 AST 23 U/L (15-39) 09/24/16 05:20 ALT 18 U/L (7-56) 09/24/16 05:20 Alkaline Phosphatase 71 U/L (38-133) 09/24/16 05:20 Lactate Dehydrogenase 396 U/L (333-699) 09/22/16 18:04 Total Creatine Kinase 62 U/L (35-230) 09/22/16 18:04 Troponin I 0.03 ng/mL 09/24/16 05:20 Total Protein 6.4 g/dL (5.8-8.3) 09/24/16 05:20 Albumin 3.6 g/dL (3.0-4.8) 09/24/16 05:20 Globulin 2.8 gm/dL 09/24/16 05:20 Albumin/Globulin Ratio 1.3 (1.1-1.8) 09/24/16 05:20 Lipase 157 U/L (23-300) 09/22/16 18:04 Urine Color Light yellow (YELLOW) 09/22/16 18:04 Urine Appearance Sl cloudy (CLEAR) 09/22/16 18:04 Urine pH 6.5 (4.7-8.0) 09/22/16 18:04 Ur Specific [place] 1.020 (1.005-1.035) 09/22/16 18:04 Urine Protein 100 mg/dL (<30 mg/dL) H 09/22/16 18:04 Urine Glucose (UA) Negative mg/dL (NEGATIVE) 09/22/16 18:04 Urine Ketones Negative mg/dL (NEGATIVE) 09/22/16 18:04 Urine Blood Small (NEGATIVE) H 09/22/16 18:04 Urine Nitrate Negative (NEGATIVE) 09/22/16 18:04 Urine Bilirubin Negative (NEGATIVE) 09/22/16 18:04 Urine Urobilinogen 0.2 E.U./dL (<1 E.U./dL) 09/22/16 18:04 Ur Leukocyte Esterase Moderate Augie/uL (NEGATIVE) H 09/22/16 18:04 Urine RBC 2 - 5 /hpf (0-2) 09/22/16 18:04 Urine WBC 25 - 30 /hpf (0-6) 09/22/16 18:04 Ur Epithelial Cells 4 - 5 /hpf (0-5) 09/22/16 18:04 Urine Bacteria Rare (NEG) 09/22/16 18:04 - Hospital Course Hospital Course: While patient was here, d/w her and her family the importance of f/u for the nodules seen in her lung and spleen, as well as the thickening of her bladder. D/w family the potential for malignancy and appropriate follow up. Patient and her family denied any efforts to follow up right now, but will consider their options Discharge Exam - Head Exam Head Exam: ATRAUMATIC, NORMOCEPHALIC Discharge Plan - Follow Up Plan Condition: FAIR Disposition: HOME/ ROUTINE Instructions: Urinary Tract Infection in Women (DC), Chronic Hypertension (DC) , Chronic Hypertension (GEN), Back Pain (GEN) Additional Instructions: Please go to nearest Emergency department if you experience shortness of breath , nausea or vomiting. Follow up with your primary care physician. 1.) Please keep your blood pressure under control with your home medications 2.) We discussed the nodules in your spleen and lung, and the swelling of your bladder wall. You should follow up out patient with your physician regarding the potential malignancy of these findings. 3.) Please return to the ED should your symptoms persist or return Referrals: Dang Armstrong MD [Primary Care Provider] - Follow up with primary
== END 2016-09-24 15:23 | disposition home or self-care (01) | DRG 690 ==
LOC: ED 16:58 → ERH 23:09 → 5RNO 09-23 00:01 → OBSVTOIN 09-23 16:12
PROVIDERS: ADMIT Internal Medicine; ATTEND Internal Medicine
DX: N39.0 Urinary tract infection, site not specified (principal); J44.9 Chronic obstructive pulmonary disease, unspecified; I12.9 Hypertensive chronic kidney disease with stage 1 through stage 4 chronic kidney disease, or unspecified chronic kidney disease; N18.9 Chronic kidney disease, unspecified; E03.9 Hypothyroidism, unspecified; E66.9 Obesity, unspecified; Z82.49 Family history of ischemic heart disease and other diseases of the circulatory system; Z83.6 Family history of other diseases of the respiratory system; K44.9 Diaphragmatic hernia without obstruction or gangrene; Z79.899 Other long term (current) drug therapy; Z87.01 Personal history of pneumonia (recurrent); Z90.13 Acquired absence of bilateral breasts and nipples; Z98.42 Cataract extraction status, left eye; Z98.41 Cataract extraction status, right eye; M19.90 Unspecified osteoarthritis, unspecified site; R32 Unspecified urinary incontinence; M54.9 Dorsalgia, unspecified; J45.909 Unspecified asthma, uncomplicated